=== PATIENT | male | born 1955 | race Caucasian/White ===

== ENCOUNTER 2023-07-07 11:14 | Inpatient (IN) | payer MEDICARE, OTHER ==
[~2023-07-07] VITALS: Ht 170.2 cm; Wt 52.6 kg
[2023-07-07] VITALS (41 sets, daily range): BP systolic 100–157; BP diastolic 68–96; PULSE 74–96; RESP 16–26; TEMP 97–98.1
[2023-07-07] MEDS: IPRATROPIUM/ALBUTEROL 0.5-3(2.5)MG/3ML NEB NEB SCH ×2 (08:44→19:53)
[2023-07-07] MEDS ORDERED: DOBUTAMINE 250MG PREMIX 250 ML IV STA (11:31)
[2023-07-07] MEDS ORDERED: DOBUTAMINE 250MG PREMIX 250 ML IV NR (11:34)
[2023-07-07] MEDS ORDERED: FENTANYL 2500MCG/250ML PMX 250 ML IV STA (11:41)
[2023-07-07] MEDS ORDERED: EPINEPHRINE 5 MG in SODIUM CHLORIDE 0.9% 245 ML IV STA (11:42)
[2023-07-07] MEDS ORDERED: TAMSULOSIN (11:44)
[2023-07-07] MEDS ORDERED: FUROSEMIDE (11:44)
[2023-07-07] MEDS ORDERED: [UNRECOGNIZED DRUG - OTHER] (11:44)
[2023-07-07] MEDS ORDERED: MYCOPHENOLATE (11:44)
[2023-07-07] MEDS ORDERED: MONTELUKAST (11:44)
[2023-07-07] MEDS ORDERED: PRAVASTATIN (11:44)
[2023-07-07] MEDS ORDERED: METOPROLOL (11:44)
[2023-07-07] MEDS ORDERED: PANTOPRAZOLE (11:44)
[2023-07-07] MEDS ORDERED: ASPIRIN (11:44)
[2023-07-07] MEDS ORDERED: [UNRECOGNIZED DRUG - OTHER] (11:44)
[2023-07-07] MEDS ORDERED: FOLIC ACID (11:44)
[2023-07-07] MEDS ORDERED: MIRTAZAPINE (11:44)
[2023-07-07] MEDS ORDERED: FLUTICASONE (11:44)
[2023-07-07] MEDS ORDERED: AZITHROMYCIN (11:44)
[2023-07-07] MEDS ORDERED: PROCTOSOL (11:44)
[2023-07-07] MEDS ORDERED: POLYETHYLENE GLYCOL (11:44)
[2023-07-07] MEDS ORDERED: PREDNISONE (11:44)
[2023-07-07] MEDS ORDERED: FENTANYL CITRATE/PF 50MCG/ML 2ML VIAL IV ONE (11:45)
[2023-07-07] MEDS ORDERED: SODIUM CHLORIDE 0.9% 1,000 ML IV ONE (11:45)
[2023-07-07] MEDS ORDERED: SODIUM CHLORIDE 0.9% 1000ML BAG (SEPSIS BOLUS) IV ONE (11:45)
[2023-07-07 11:56] LABS: HEMOGLOBIN. 10.8 g/dL (14.0-18.0); MEAN CORPUSCULAR HEMOGLOBIN 33.7 pg (28.0-32.0); MEAN CORPUSCULAR HGB CONC 31.7 g/dL (31.0-37.0); MEAN CORPUSCULAR VOLUME 106.6 fL (80.0-94.0); MEAN PLATELET VOLUME 9.6 fl (7.4-10.4); PLATELET 123 x1000/uL (130-400); RED BLOOD CELL COUNT 3.19 mill/uL (4.7-6.1); RED CELL DISTRIBUTION WIDTH 14.6 % (11.6-14.6); WHITE BLOOD COUNT 4.6 x1000/uL (4.5-11.0)
[2023-07-07 11:58] LABS: DIFFERENTIAL COMMENT 1
[2023-07-07] MEDS ORDERED: NOREPINEPHRINE 8MG/250ML PMX 250 ML IV STA (12:02)
[2023-07-07 12:05] LABS: BG BASE EXCESS -0.6 mmol/L (-2.0-2.0); BG CARBOXYHEMOGLOBIN 0.2 % (0.5-1.5); BG DEOXYHEMOGLOBIN 0.4 % (0.0-5.0); BG HCO3 ACT 29.5 mmol/L (22.0-26.0); BG METHEMOGLOBIN 0.3 % (0.0-1.5); BG OXYGEN SATURATION 99.6 % (92.0-98.5); BG OXYHEMOGLOBIN 99.1 % (94.0-97.0); BG PCO2 81.1 mmHg (35.0-45.0); BG PH 7.179 (7.350-7.450); BG PO2 433.6 mmHg (75.0-100.0); BG SAMPLE SITE RIGHT BRACHIAL; BG TOTAL HEMOGLOBIN 11.9 g/dL (12.0-18.0); BG VENT MODE VENT - AC
[2023-07-07 12:11] LABS: INR 1.3; PROTHROMBIN TIME 13.4 sec (9.6-11.0)
[2023-07-07] MEDS ORDERED: EPINEPHRINE 5 MG in SODIUM CHLORIDE 0.9% 250 ML IV PRN (12:30)
[2023-07-07] MEDS ORDERED: FENTANYL CITRATE 2,500 MCG in SODIUM CHLORIDE 0.9% 200 ML IV PRN ×2 (12:30→16:00)
[2023-07-07] MEDS ORDERED: MIDAZOLAM 100MG/100ML PMX 100 ML IV PRN (14:15)
[2023-07-07 15:08] LABS: HYPOCHROMASIA 1+; PLATELET ESTIMATE SLIGHTLY DECREASED
[2023-07-07] MEDS ORDERED: ACETAMINOPHEN 325MG TABLET PO PRN (15:30)
[2023-07-07] MEDS ORDERED: IPRATROPIUM/ALBUTEROL 0.5-3(2.5)MG/3ML NEB NEB PRN (15:30)
[2023-07-07] MEDS ORDERED: ONDANSETRON HCL 4MG/2ML INJ IV PRN (15:30)
[2023-07-07] MEDS ORDERED: ENOXAPARIN 40MG/0.4ML SYR SUBCUT SCH (15:30)
[2023-07-07] MEDS ORDERED: MAGNESIUM/ALUMINUM HYDROXIDE/SIMETHICONE 30ML UDC PO PRN (15:30)
[2023-07-07] MEDS ORDERED: CLONIDINE 0.1MG TABLET PO PRN (15:30)
[2023-07-07] MEDS ORDERED: GUAIFENESIN 200MG/10ML SUGAR FREE UDC PO PRN (15:30)
[2023-07-07 15:51] LABS: TROPONIN I HIGH SENSITIVITY 416 ng/L (3.0-53)
[2023-07-07 15:51] LABS: BG BASE EXCESS 4.2 mmol/L (-2.0-2.0); BG CARBOXYHEMOGLOBIN 0.3 % (0.5-1.5); BG DEOXYHEMOGLOBIN 9.6 % (0.0-5.0); BG HCO3 ACT 29.3 mmol/L (22.0-26.0); BG METHEMOGLOBIN 0.1 % (0.0-1.5); BG OXYGEN SATURATION 90.4 % (92.0-98.5); BG PCO2 45.5 mmHg (35.0-45.0); BG PH 7.426 (7.350-7.450); BG PO2 57.6 mmHg (75.0-100.0); BG SAMPLE SITE RIGHT BRACHIAL; BG TOTAL HEMOGLOBIN 12.4 g/dL (12.0-18.0); BG VENT MODE VENT - AC
[2023-07-07] MEDS ORDERED: FENTANYL 2500MCG/250ML PMX 250 ML IV ONE (16:00)
[2023-07-07] MEDS ORDERED: NOREPINEPHRINE 32 MG in DEXT 5% WATER 218 ML IV PRN (16:00)
[2023-07-07] MEDS ORDERED: FINA5TAB11 PO (16:20)
[2023-07-07] MEDS ORDERED: ALEN70TA79 PO (16:20)
[2023-07-07] MEDS ORDERED: FURO20TA4 PO (16:20)
[2023-07-07] MEDS ORDERED: SULF-292 PO (16:20)
[2023-07-07] MEDS ORDERED: PRAV20TA57 PO (16:20)
[2023-07-07] MEDS ORDERED: TACR1CAP PO (16:20)
[2023-07-07] MEDS ORDERED: AZIT250T12 PO (16:20)
[2023-07-07] MEDS ORDERED: DILT360C37 PO (16:20)
[2023-07-07] MEDS ORDERED: TAMS-11 PO (16:20)
[2023-07-07] MEDS ORDERED: METO25TA6 PO (16:20)
[2023-07-07] MEDS ORDERED: DILT300C53 PO (16:20)
[2023-07-07] MEDS ORDERED: TACR0.5C4 PO (16:20)
[2023-07-07] MEDS ORDERED: MIRT7.5T11 PO (16:20)
[2023-07-07] MEDS ORDERED: VALG450T15 PO (16:20)
[2023-07-07] MEDS ORDERED: FOLI-43 PO (16:20)
[2023-07-07] MEDS ORDERED: MONT-39 PO (16:20)
[2023-07-07] MEDS ORDERED: MYCO250C PO (16:20)
[2023-07-07] MEDS ORDERED: POLY510P31 PO (16:20)
[2023-07-07] MEDS ORDERED: PANT40TA51 PO (16:20)
[2023-07-07] MEDS: ENOXAPARIN 60MG/0.6ML SYR SUBCUT NR ×2 (16:49→16:57)
[2023-07-07 17:55] LABS: LACTIC ACID 6.1 mmol/L (0.4-2.0)
[2023-07-07 18:52] LABS: TROPONIN I HIGH SENSITIVITY 327 ng/L (3.0-53)
[2023-07-07 20:29] LABS: BG BASE EXCESS 7.3 mmol/L (-2.0-2.0); BG CARBOXYHEMOGLOBIN 0.3 % (0.5-1.5); BG DEOXYHEMOGLOBIN 1.2 % (0.0-5.0); BG FRACTION INSPIRED OXYGEN 80; BG HCO3 ACT 31.6 mmol/L (22.0-26.0); BG OXYGEN SATURATION 98.8 % (92.0-98.5); BG OXYHEMOGLOBIN 98.5 % (94.0-97.0); BG PCO2 43.4 mmHg (35.0-45.0); BG PO2 206.7 mmHg (75.0-100.0); BG SAMPLE SITE RIGHT BRACHIAL; BG TOTAL HEMOGLOBIN 12.4 g/dL (12.0-18.0); BG TOTAL RESPIRATORY RATE 24 b/min; BG VENT MODE VENT - AC
[2023-07-07] MEDS ORDERED: PANTOPRAZOLE SODIUM 40 MG/VIAL IV SCH (21:30)
[2023-07-07] MEDS ORDERED: PIPERACILLIN/TAZOBACTAM 3.375 G in DEXTROSE 5% WATER 50 ML IV SCH (22:00)
[2023-07-07 22:19] LABS: CHLORIDE 114 mEq/L (98-107); POTASSIUM 4.6 mEq/L (3.5-5.1); SODIUM 149 mEq/L (136-145)
[2023-07-07 22:20] LABS: CARBON DIOXIDE 17 mEq/L (21-32); GLUCOSE 59 mg/dL (70-105)
[2023-07-07 22:21] LABS: CALCIUM 9.1 mg/dL (8.7-10.4)
[2023-07-07 22:22] LABS: ALANINE AMINOTRANSFERASE 9 IU/L (10-49); ALBUMIN 3.5 g/dL (3.2-4.8); ASPARTATE AMINOTRANSFERASE 30 IU/L (<34); BILIRUBIN TOTAL 0.6 mg/dL (0.1-1.0)
[2023-07-07 22:23] LABS: CREATINE KINASE 60 IU/L (46-171); TROPONIN I HIGH SENSITIVITY 37 ng/L (3.0-53)
[2023-07-07 22:27] LABS: PROTEIN TOTAL 6.5 g/dL (6.0-8.3); UREA NITROGEN BLOOD 12 mg/dL (9-23)
[2023-07-07] MEDS ORDERED: LEVOFLOXACIN 500MG PREMIX 100 ML IV NR (22:30)
[2023-07-07 23:07] LABS: CALCIUM 10.7 mg/dL (8.7-10.4)
[2023-07-07 23:10] LABS: CREATININE 1.6 mg/dL (0.6-1.3)
[2023-07-08] VITALS (94 sets, daily range): BP systolic 116–161; BP diastolic 65–101; PULSE 78–102; RESP 14–42; TEMP 97.9–99.5
[2023-07-08 04:46] LABS: MEAN CORPUSCULAR HGB CONC 33.3 g/dL (31.0-37.0); MEAN CORPUSCULAR VOLUME 102.1 fL (80.0-94.0); MEAN PLATELET VOLUME 9.4 fl (7.4-10.4); PLATELET 104 x1000/uL (130-400); RED BLOOD CELL COUNT 3.23 mill/uL (4.7-6.1); RED CELL DISTRIBUTION WIDTH 13.9 % (11.6-14.6); WHITE BLOOD COUNT 4.9 x1000/uL (4.5-11.0)
[2023-07-08 05:10] LABS: CALCIUM 10.4 mg/dL (8.7-10.4); CARBON DIOXIDE 33 mEq/L (21-32); CHLORIDE 110 mEq/L (98-107); CREATININE 1.7 mg/dL (0.6-1.3); GLUCOSE 165 mg/dL (70-105); PHOSPHORUS 2.2 mg/dL (2.5-4.9); POTASSIUM 4.6 mEq/L (3.5-5.1); SODIUM 150 mEq/L (136-145); UREA NITROGEN BLOOD 45 mg/dL (9-23)
[2023-07-08 06:00] LABS: DIFFERENTIAL COMMENT 1
[2023-07-08] MEDS ORDERED: IOHEXOL-350 100 ML BOTTLE ONE (06:36)
[2023-07-08] MEDS: ENOXAPARIN 60MG/0.6ML SYR SUBCUT SCH (06:58)
[2023-07-08 08:38] LABS: BG BASE EXCESS 6.5 mmol/L (-2.0-2.0); BG CARBOXYHEMOGLOBIN 0.1 % (0.5-1.5); BG DEOXYHEMOGLOBIN 2.7 % (0.0-5.0); BG FRACTION INSPIRED OXYGEN 40; BG METHEMOGLOBIN 0.1 % (0.0-1.5); BG OXYGEN SATURATION 97.3 % (92.0-98.5); BG OXYHEMOGLOBIN 97.1 % (94.0-97.0); BG PCO2 34.4 mmHg (35.0-45.0); BG PH 7.544 (7.350-7.450); BG SAMPLE SITE LEFT RADIAL; BG TOTAL HEMOGLOBIN 12.7 g/dL (12.0-18.0); BG VENT MODE VENT - AC
[2023-07-08] MEDS: PANTOPRAZOLE SODIUM 40 MG/VIAL IV SCH (08:54)
[2023-07-08 09:00] LABS: NUCLEATED RED BLOOD CELLS 1 /100 WBC; PLATELET ESTIMATE SLIGHTLY DECREASED
[2023-07-08] MEDS ORDERED: VANCOMYCIN 1G PREMIX 200 ML IV NR (09:15)
[2023-07-08] MEDS: METRONIDAZOLE 500 MG PREMIX 100 ML IV SCH ×2 (09:43→16:20)
[2023-07-08] MEDS: TAMSULOSIN HCL 0.4MG SR CAPSULE PO SCH (10:55)
[2023-07-08] MEDS: DEXT 5%/0.45% NACL 1000ML 1,000 ML IV SCH ×2 (10:55→23:27)
[2023-07-08] MEDS: ASPIRIN 81MG TABLET PO SCH (10:55)
[2023-07-08] MEDS ORDERED: TACROLIMUS 0.5 MG CAPSULE PO SCH (11:30)
[2023-07-08 11:43] LABS: BG BASE EXCESS 7.2 mmol/L (-2.0-2.0); BG CARBOXYHEMOGLOBIN 0.3 % (0.5-1.5); BG DEOXYHEMOGLOBIN 3.1 % (0.0-5.0); BG FRACTION INSPIRED OXYGEN 40; BG HCO3 ACT 31.8 mmol/L (22.0-26.0); BG METHEMOGLOBIN 0.3 % (0.0-1.5); BG OXYGEN SATURATION 96.9 % (92.0-98.5); BG OXYHEMOGLOBIN 96.3 % (94.0-97.0); BG PCO2 45.1 mmHg (35.0-45.0); BG PH 7.466 (7.350-7.450); BG PO2 93.2 mmHg (75.0-100.0); BG SAMPLE SITE RIGHT RADIAL; BG TOTAL HEMOGLOBIN 11.7 g/dL (12.0-18.0); BG VENT MODE VENT - AC
[2023-07-08] MEDS: IPRATROPIUM/ALBUTEROL 0.5-3(2.5)MG/3ML NEB NEB SCH ×2 (14:05→20:01)
[2023-07-08] MEDS ORDERED: TACROLIMUS 1MG/PACKET PO SCH (17:00)
[2023-07-08] MEDS ORDERED: TACROLIMUS 0.5 MG CAPSULE NG SCH (17:00)
[2023-07-08 17:24] LABS: CLARITY URINE CLEAR (CLEAR); COLOR URINE YELLOW (YELLOW); SPECIFIC GRAVITY URINE 1.005 (1.005-1.030)
[2023-07-08 17:25] LABS: GLUCOSE URINE 2+ (NEGATIVE); KETONES URINE NEGATIVE (NEGATIVE); NITRITE URINE NEGATIVE (NEGATIVE); OCCULT BLOOD URINE NEGATIVE (NEGATIVE); PH URINE 5.5 (4.5-8.0); PROTEIN URINE NEGATIVE (NEGATIVE)
[2023-07-08 17:26] LABS: LEUKOCYTE ESTERASE URINE NEGATIVE (NEGATIVE); UROBILINOGEN URINE 0.2 E.U./dL (0.2-1.0)
[2023-07-08 17:40] LABS: HYALINE CASTS URINE 0-5 /lpf; RBC URINE 0-2 /hpf (0-2); SQUAMOUS EPITHELIAL CELL URINE FEW /lpf (RARE/1+)
[2023-07-08 17:42] LABS: BACTERIA URINE TRACE
[2023-07-08 17:43] LABS: WBC URINE 0-2 /hpf (0-2)
[2023-07-08] MEDS: TACROLIMUS 1MG/PACKET NG SCH (18:46)
[2023-07-08] MEDS: PREDNISONE 5MG TABLET PO SCH (18:46)
[2023-07-08] MEDS: ACYCLOVIR 400 MG TABLET PO SCH (20:27)
[2023-07-08] MEDS ORDERED: MYCOPHENOLATE MOFETIL 250MG CAPSULE PO SCH (21:00)
[2023-07-08] MEDS: LEVOFLOXACIN 250MG PREMIX 100 ML IV SCH (21:43)
[2023-07-09] VITALS (75 sets, daily range): BP systolic 104–155; BP diastolic 63–85; PULSE 96–113; RESP 14–33; TEMP 98.2–100.1
[2023-07-09] MEDS: METRONIDAZOLE 500 MG PREMIX 100 ML IV SCH ×3 (01:34→17:21)
[2023-07-09] MEDS: IPRATROPIUM/ALBUTEROL 0.5-3(2.5)MG/3ML NEB NEB SCH ×4 (02:57→20:15)
[2023-07-09 06:04] LABS: CALCIUM 9.3 mg/dL (8.7-10.4); CREATININE 1.8 mg/dL (0.6-1.3); POTASSIUM 4.2 mEq/L (3.5-5.1)
[2023-07-09] MEDS: ENOXAPARIN 60MG/0.6ML SYR SUBCUT SCH (06:45)
[2023-07-09] MEDS: TACROLIMUS 1MG/PACKET NG SCH ×2 (08:34→17:23)
[2023-07-09] MEDS: PREDNISONE 5MG TABLET PO SCH (08:34)
[2023-07-09] MEDS: ASPIRIN 81MG TABLET PO SCH (08:34)
[2023-07-09] MEDS: PANTOPRAZOLE SODIUM 40 MG/VIAL IV SCH (08:34)
[2023-07-09] MEDS: TAMSULOSIN HCL 0.4MG SR CAPSULE PO SCH (08:35)
[2023-07-09] MEDS: ACYCLOVIR 400 MG TABLET PO SCH (08:35)
[2023-07-09 08:49] LABS: BG BASE EXCESS 3.5 mmol/L (-2.0-2.0); BG CARBOXYHEMOGLOBIN 0.3 % (0.5-1.5); BG DEOXYHEMOGLOBIN 1.6 % (0.0-5.0); BG FRACTION INSPIRED OXYGEN 50; BG HCO3 ACT 30.2 mmol/L (22.0-26.0); BG METHEMOGLOBIN 0.3 % (0.0-1.5); BG OXYGEN SATURATION 98.4 % (92.0-98.5); BG OXYHEMOGLOBIN 97.8 % (94.0-97.0); BG PCO2 55.4 mmHg (35.0-45.0); BG PH 7.354 (7.350-7.450); BG PO2 147.2 mmHg (75.0-100.0); BG SAMPLE SITE RIGHT RADIAL; BG TOTAL HEMOGLOBIN 11.9 g/dL (12.0-18.0); BG TOTAL RESPIRATORY RATE 29 b/min; BG VENT MODE VENT - SIMV
[2023-07-09] MEDS ORDERED: VANCOMYCIN 750MG PREMIX 150 ML IV SCH (09:00)
[2023-07-09] MEDS ORDERED: TACROLIMUS 1MG/PACKET PO SCH (09:00)
[2023-07-09] MEDS: DEXT 5%/0.45% NACL 1000ML 1,000 ML IV SCH (13:52)
[2023-07-09 14:54] LABS: BG BASE EXCESS 4.7 mmol/L (-2.0-2.0); BG CARBOXYHEMOGLOBIN 0.2 % (0.5-1.5); BG DEOXYHEMOGLOBIN 2.5 % (0.0-5.0); BG FRACTION INSPIRED OXYGEN 40; BG HCO3 ACT 30.8 mmol/L (22.0-26.0); BG METHEMOGLOBIN 0.2 % (0.0-1.5); BG OXYGEN SATURATION 97.5 % (92.0-98.5); BG OXYHEMOGLOBIN 97.1 % (94.0-97.0); BG PCO2 53.7 mmHg (35.0-45.0); BG PH 7.377 (7.350-7.450); BG PO2 111.2 mmHg (75.0-100.0); BG SAMPLE SITE RIGHT RADIAL; BG TOTAL HEMOGLOBIN 10.1 g/dL (12.0-18.0); BG VENT MODE VENT - CPAP
[2023-07-09] MEDS: SULFAMETHOXAZOLE/TRIMETHOPRIM 200-40 MG/5ML 5ML ORAL SYR GT SCH (17:22)
[2023-07-09] MEDS ORDERED: VANCOMYCIN 500MG PREMIX 100 ML IV SCH (21:00)
[2023-07-09] MEDS: LEVOFLOXACIN 250MG PREMIX 100 ML IV SCH (21:29)
[2023-07-09] MEDS: ACETAMINOPHEN 325MG TABLET PO PRN (22:24)
[2023-07-09] MEDS: ACYCLOVIR 200 MG/5 ML ORAL SYR GT SCH (22:55)
[2023-07-10] VITALS (49 sets, daily range): BP systolic 99–148; BP diastolic 65–107; PULSE 99–111; RESP 13–32; TEMP 98.3–100.3
[2023-07-10] MEDS: METRONIDAZOLE 500 MG PREMIX 100 ML IV SCH ×3 (00:25→17:01)
[2023-07-10] MEDS: DEXT 5%/0.45% NACL 1000ML 1,000 ML IV SCH (02:08)
[2023-07-10] MEDS: MIDAZOLAM HCL 100 MG in SODIUM CHLORIDE 0.9% 80 ML IV PRN (03:31)
[2023-07-10] MEDS: IPRATROPIUM/ALBUTEROL 0.5-3(2.5)MG/3ML NEB NEB SCH ×4 (04:57→21:26)
[2023-07-10 05:35] LABS: DIFFERENTIAL COMMENT 0; HEMATOCRIT. 24.1 % (42.0-52.0); HEMOGLOBIN. 8.1 g/dL (14.0-18.0); LYMPHOCYTES % 8.1 % (20.0-50.0); MEAN CORPUSCULAR HEMOGLOBIN 34.4 pg (28.0-32.0); MEAN CORPUSCULAR HGB CONC 33.4 g/dL (31.0-37.0); MEAN PLATELET VOLUME 9.9 fl (7.4-10.4); MONOCYTES % 9.7 % (2.0-8.0); NEUTROPHILS % 82.2 % (40.0-76.0); PLATELET 52 x1000/uL (130-400); RED BLOOD CELL COUNT 2.34 mill/uL (4.7-6.1); RED CELL DISTRIBUTION WIDTH 14.2 % (11.6-14.6); WHITE BLOOD COUNT 2.9 x1000/uL (4.5-11.0)
[2023-07-10 05:56] LABS: CALCIUM 8.4 mg/dL (8.7-10.4); CREATININE 1.4 mg/dL (0.6-1.3); POTASSIUM 3.7 mEq/L (3.5-5.1)
[2023-07-10] MEDS: ENOXAPARIN 60MG/0.6ML SYR SUBCUT SCH (05:57)
[2023-07-10] MEDS: TAMSULOSIN HCL 0.4MG SR CAPSULE PO SCH (09:00)
[2023-07-10] MEDS: PREDNISONE 5MG TABLET PO SCH (09:00)
[2023-07-10] MEDS: PANTOPRAZOLE SODIUM 40 MG/VIAL IV SCH (09:00)
[2023-07-10] MEDS: ACYCLOVIR 200 MG/5 ML ORAL SYR GT SCH ×2 (09:00→21:51)
[2023-07-10] MEDS: ASPIRIN 81MG TABLET PO SCH (09:00)
[2023-07-10] MEDS ORDERED: VANCOMYCIN 500MG PREMIX 100 ML IV SCH (10:00)
[2023-07-10 10:44] LABS: BG BASE EXCESS 3.1 mmol/L (-2.0-2.0); BG CARBOXYHEMOGLOBIN 0.3 % (0.5-1.5); BG DEOXYHEMOGLOBIN 2.3 % (0.0-5.0); BG FRACTION INSPIRED OXYGEN 40; BG METHEMOGLOBIN 0.5 % (0.0-1.5); BG OXYGEN SATURATION 97.7 % (92.0-98.5); BG OXYHEMOGLOBIN 96.9 % (94.0-97.0); BG PCO2 44.1 mmHg (35.0-45.0); BG PO2 106.1 mmHg (75.0-100.0); BG SAMPLE SITE RIGHT RADIAL; BG TOTAL HEMOGLOBIN 9.3 g/dL (12.0-18.0); BG TOTAL RESPIRATORY RATE 27 b/min; BG VENT MODE VENT - SIMV
[2023-07-10] MEDS: MICAFUNGIN 100 MG in SODIUM CHLORIDE 0.9% 100 ML IV SCH (16:00)
[2023-07-10] MEDS: SULFAMETHOXAZOLE/TRIMETHOPRIM 200-40 MG/5ML 5ML ORAL SYR GT SCH (18:00)
[2023-07-10] MEDS ORDERED: VANCOMYCIN 750MG PREMIX 150 ML IV SCH (21:00)
[2023-07-10] MEDS: LEVOFLOXACIN 250MG PREMIX 100 ML IV SCH (21:51)
[2023-07-11] VITALS (103 sets, daily range): BP systolic 103–164; BP diastolic 60–85; PULSE 92–111; RESP 15–47; TEMP 98.2–98.9; O2SAT 99
[2023-07-11] MEDS: METRONIDAZOLE 500 MG PREMIX 100 ML IV SCH ×3 (00:11→16:56)
[2023-07-11] MEDS: IPRATROPIUM/ALBUTEROL 0.5-3(2.5)MG/3ML NEB NEB SCH ×4 (00:41→20:31)
[2023-07-11] MEDS: MIDAZOLAM HCL 100 MG in SODIUM CHLORIDE 0.9% 80 ML IV PRN (04:28)
[2023-07-11] MEDS: ENOXAPARIN 60MG/0.6ML SYR SUBCUT SCH (05:17)
[2023-07-11 05:33] LABS: HEMATOCRIT. 22.9 % (42.0-52.0); HEMOGLOBIN. 7.8 g/dL (14.0-18.0); LYMPHOCYTES % 8.3 % (20.0-50.0); MEAN CORPUSCULAR HEMOGLOBIN 35.3 pg (28.0-32.0); MEAN CORPUSCULAR HGB CONC 33.9 g/dL (31.0-37.0); MEAN PLATELET VOLUME 10.6 fl (7.4-10.4); MONOCYTES % 9.8 % (2.0-8.0); NEUTROPHILS % 81.9 % (40.0-76.0); RED CELL DISTRIBUTION WIDTH 13.9 % (11.6-14.6); WHITE BLOOD COUNT 2.5 x1000/uL (4.5-11.0)
[2023-07-11 05:35] LABS: CALCIUM 8.1 mg/dL (8.7-10.4); CARBON DIOXIDE 30 mEq/L (21-32); CHLORIDE 109 mEq/L (98-107); CREATININE 1.1 mg/dL (0.6-1.3); GLUCOSE 155 mg/dL (70-105); PHOSPHORUS 2.1 mg/dL (2.5-4.9); POTASSIUM 4.2 mEq/L (3.5-5.1); SODIUM 143 mEq/L (136-145); UREA NITROGEN BLOOD 26 mg/dL (9-23)
[2023-07-11 06:45] LABS: DIFFERENTIAL COMMENT 1
[2023-07-11] MEDS: TAMSULOSIN HCL 0.4MG SR CAPSULE PO SCH (08:20)
[2023-07-11] MEDS: ASPIRIN 81MG TABLET PO SCH (08:20)
[2023-07-11] MEDS: PREDNISONE 5MG TABLET PO SCH (08:20)
[2023-07-11] MEDS: PANTOPRAZOLE SODIUM 40 MG/VIAL IV SCH (08:20)
[2023-07-11] MEDS: ACYCLOVIR 200 MG/5 ML ORAL SYR GT SCH ×2 (08:22→22:00)
[2023-07-11] MEDS ORDERED: LIDOCAINE HCL 1% 10 MG/ML 10ML VIAL ONE (09:50)
[2023-07-11 10:25] LABS: BG BASE EXCESS 4.3 mmol/L (-2.0-2.0); BG CARBOXYHEMOGLOBIN 0.2 % (0.5-1.5); BG DEOXYHEMOGLOBIN 2.3 % (0.0-5.0); BG FRACTION INSPIRED OXYGEN 40; BG HCO3 ACT 28.7 mmol/L (22.0-26.0); BG METHEMOGLOBIN 0.3 % (0.0-1.5); BG OXYGEN SATURATION 97.7 % (92.0-98.5); BG OXYHEMOGLOBIN 97.2 % (94.0-97.0); BG PCO2 42.3 mmHg (35.0-45.0); BG PEEP (cmH2O) 0 cmH2O; BG PH 7.449 (7.350-7.450); BG PO2 112.8 mmHg (75.0-100.0); BG SAMPLE SITE RIGHT RADIAL; BG TOTAL HEMOGLOBIN 8.6 g/dL (12.0-18.0); BG VENT MODE VENT - AC
[2023-07-11] MEDS ORDERED: NALOXONE HCL 0.4MG/ML VIAL IV PRN (13:45)
[2023-07-11] MEDS ORDERED: MORPHINE SULFATE 2 MG/ML CPJ (NOT FOR IM USE) IV PRN (13:45)
[2023-07-11] MEDS: MICAFUNGIN 100 MG in SODIUM CHLORIDE 0.9% 100 ML IV SCH (16:56)
[2023-07-11] MEDS: TACROLIMUS 1MG/PACKET NG SCH ×2 (17:01→17:02)
[2023-07-11] MEDS: SULFAMETHOXAZOLE/TRIMETHOPRIM 200-40 MG/5ML 5ML ORAL SYR GT SCH (18:02)
[2023-07-11] MEDS: VANCOMYCIN 750MG PREMIX 150 ML IV SCH (18:02)
[2023-07-11 18:26] LABS: BG BASE EXCESS 1.5 mmol/L (-2.0-2.0); BG CARBOXYHEMOGLOBIN 0.3 % (0.5-1.5); BG DEOXYHEMOGLOBIN 3.4 % (0.0-5.0); BG FRACTION INSPIRED OXYGEN 40; BG METHEMOGLOBIN 0.2 % (0.0-1.5); BG OXYGEN SATURATION 96.6 % (92.0-98.5); BG OXYHEMOGLOBIN 96.1 % (94.0-97.0); BG PCO2 46.5 mmHg (35.0-45.0); BG PH 7.381 (7.350-7.450); BG PO2 94.3 mmHg (75.0-100.0); BG SAMPLE SITE RIGHT BRACHIAL; BG TOTAL HEMOGLOBIN 10.2 g/dL (12.0-18.0); BG VENT MODE VENT - SIMV
[2023-07-11] MEDS: LEVOFLOXACIN 250MG PREMIX 100 ML IV SCH (22:00)
[2023-07-11] MEDS: POTASSIUM-SODIUM PHOSPHATE POWDER PACKET PO SCH (23:47)
[2023-07-12] VITALS (83 sets, daily range): BP systolic 97–231; BP diastolic 51–119; PULSE 92–110; RESP 16–37; TEMP 98.5–100.1
[2023-07-12] MEDS: METRONIDAZOLE 500 MG PREMIX 100 ML IV SCH ×3 (01:00→16:52)
[2023-07-12] MEDS: LORAZEPAM 2MG/ML CPJ IV PRN ×2 (02:57→18:55)
[2023-07-12] MEDS: IPRATROPIUM/ALBUTEROL 0.5-3(2.5)MG/3ML NEB NEB SCH ×3 (04:00→12:55)
[2023-07-12 05:00] LABS: HEMATOCRIT. 26.1 % (42.0-52.0); HEMOGLOBIN. 8.6 g/dL (14.0-18.0); MEAN CORPUSCULAR HEMOGLOBIN 34.7 pg (28.0-32.0); MEAN CORPUSCULAR HGB CONC 32.9 g/dL (31.0-37.0); MEAN CORPUSCULAR VOLUME 105.3 fL (80.0-94.0); MEAN PLATELET VOLUME 9.7 fl (7.4-10.4); RED BLOOD CELL COUNT 2.48 mill/uL (4.7-6.1); WHITE BLOOD COUNT 2.6 x1000/uL (4.5-11.0)
[2023-07-12 05:19] LABS: CALCIUM 8.4 mg/dL (8.7-10.4); CARBON DIOXIDE 31 mEq/L (21-32); CHLORIDE 109 mEq/L (98-107); CREATININE 0.9 mg/dL (0.6-1.3); GLUCOSE 146 mg/dL (70-105); PHOSPHORUS 2.4 mg/dL (2.5-4.9); POTASSIUM 4.6 mEq/L (3.5-5.1); SODIUM 143 mEq/L (136-145); UREA NITROGEN BLOOD 27 mg/dL (9-23)
[2023-07-12] MEDS: ENOXAPARIN 60MG/0.6ML SYR SUBCUT SCH (06:00)
[2023-07-12 07:05] LABS: DIFFERENTIAL COMMENT 1; PLATELET 47 x1000/uL (130-400)
[2023-07-12] MEDS: POTASSIUM-SODIUM PHOSPHATE POWDER PACKET PO SCH ×2 (09:11→16:51)
[2023-07-12] MEDS: TACROLIMUS 1MG/PACKET NG SCH ×2 (09:11→16:51)
[2023-07-12] MEDS: ACYCLOVIR 200 MG/5 ML ORAL SYR GT SCH ×2 (09:11→20:55)
[2023-07-12] MEDS: PANTOPRAZOLE SODIUM 40 MG/VIAL IV SCH (09:11)
[2023-07-12] MEDS: ASPIRIN 81MG TABLET PO SCH (09:11)
[2023-07-12] MEDS: PREDNISONE 5MG TABLET PO SCH (09:11)
[2023-07-12] MEDS: TAMSULOSIN HCL 0.4MG SR CAPSULE PO SCH (09:12)
[2023-07-12 09:23] LABS: BG BASE EXCESS 0.7 mmol/L (-2.0-2.0); BG CARBOXYHEMOGLOBIN 0.3 % (0.5-1.5); BG DEOXYHEMOGLOBIN 1.8 % (0.0-5.0); BG FRACTION INSPIRED OXYGEN 40; BG HCO3 ACT 27.7 mmol/L (22.0-26.0); BG OXYGEN SATURATION 98.2 % (92.0-98.5); BG OXYHEMOGLOBIN 97.9 % (94.0-97.0); BG PCO2 56.9 mmHg (35.0-45.0); BG PH 7.305 (7.350-7.450); BG PO2 142.6 mmHg (75.0-100.0); BG SAMPLE SITE RIGHT BRACHIAL; BG TOTAL HEMOGLOBIN 9.6 g/dL (12.0-18.0); BG VENT MODE VENT - SIMV
[2023-07-12 11:55] LABS: PLATELET ESTIMATE MARKEDLY DECREASED
[2023-07-12] MEDS: VANCOMYCIN 750MG PREMIX 150 ML IV SCH (12:15)
[2023-07-12] MEDS: MICAFUNGIN 100 MG in SODIUM CHLORIDE 0.9% 100 ML IV SCH (14:00)
[2023-07-12] MEDS ORDERED: ACETAMINOPHEN 650MG/20.3ML UDC PO PRN (16:45)
[2023-07-12] MEDS: LEVOFLOXACIN 750MG PREMIX 150 ML IV SCH (20:55)
[2023-07-12] MEDS: SULFAMETHOXAZOLE/TRIMETHOPRIM 200-40 MG/5ML 5ML ORAL SYR GT SCH (22:43)
[2023-07-13] VITALS (54 sets, daily range): BP systolic 103–141; BP diastolic 54–78; PULSE 81–99; RESP 19–33; TEMP 98.4–99.2
[2023-07-13] MEDS: METRONIDAZOLE 500 MG PREMIX 100 ML IV SCH ×3 (00:42→17:02)
[2023-07-13 05:30] LABS: HEMATOCRIT. 23.5 % (42.0-52.0); HEMOGLOBIN. 7.7 g/dL (14.0-18.0); MEAN CORPUSCULAR HEMOGLOBIN 34.8 pg (28.0-32.0); MEAN CORPUSCULAR HGB CONC 32.7 g/dL (31.0-37.0); MEAN CORPUSCULAR VOLUME 106.6 fL (80.0-94.0); MEAN PLATELET VOLUME 10.4 fl (7.4-10.4); RED BLOOD CELL COUNT 2.21 mill/uL (4.7-6.1); RED CELL DISTRIBUTION WIDTH 14.3 % (11.6-14.6)
[2023-07-13 05:47] LABS: ALANINE AMINOTRANSFERASE 60 IU/L (10-49); ALBUMIN 2.5 g/dL (3.2-4.8); ASPARTATE AMINOTRANSFERASE 22 IU/L (<34); BILIRUBIN TOTAL 0.4 mg/dL (0.1-1.0); CARBON DIOXIDE 30 mEq/L (21-32); CHLORIDE 108 mEq/L (98-107); CREATININE 0.8 mg/dL (0.6-1.3); GLUCOSE 108 mg/dL (70-105); PHOSPHORUS 2.1 mg/dL (2.5-4.9); POTASSIUM 4.2 mEq/L (3.5-5.1); SODIUM 141 mEq/L (136-145); UREA NITROGEN BLOOD 17 mg/dL (9-23)
[2023-07-13] MEDS: VANCOMYCIN 750MG PREMIX 150 ML IV SCH (05:56)
[2023-07-13 06:29] LABS: DIFFERENTIAL COMMENT 1; PLATELET 42 x1000/uL (130-400); WHITE BLOOD COUNT 1.8 x1000/uL (4.5-11.0)
[2023-07-13] MEDS: ACYCLOVIR 200 MG/5 ML ORAL SYR GT SCH ×2 (09:30→21:37)
[2023-07-13 09:31] LABS: BG BASE EXCESS 5.6 mmol/L (-2.0-2.0); BG CARBOXYHEMOGLOBIN 0.1 % (0.5-1.5); BG DEOXYHEMOGLOBIN 1.1 % (0.0-5.0); BG FRACTION INSPIRED OXYGEN 50; BG HCO3 ACT 30.3 mmol/L (22.0-26.0); BG METHEMOGLOBIN 0.3 % (0.0-1.5); BG OXYGEN SATURATION 98.9 % (92.0-98.5); BG OXYHEMOGLOBIN 98.5 % (94.0-97.0); BG PCO2 45.5 mmHg (35.0-45.0); BG PH 7.441 (7.350-7.450); BG PO2 142.2 mmHg (75.0-100.0); BG SAMPLE SITE RIGHT BRACHIAL; BG VENT MODE VENT - AC
[2023-07-13] MEDS: PANTOPRAZOLE SODIUM 40 MG/VIAL IV SCH (09:47)
[2023-07-13] MEDS: TAMSULOSIN HCL 0.4MG SR CAPSULE PO SCH (09:48)
[2023-07-13] MEDS: POTASSIUM-SODIUM PHOSPHATE POWDER PACKET PO SCH ×2 (09:49→17:02)
[2023-07-13] MEDS: ASPIRIN 81MG TABLET PO SCH (09:49)
[2023-07-13] MEDS: TACROLIMUS 1MG/PACKET NG SCH ×2 (09:49→17:02)
[2023-07-13] MEDS: PREDNISONE 5MG TABLET PO SCH (09:50)
[2023-07-13 10:17] LABS: PLATELET ESTIMATE MARKEDLY DECREASED
[2023-07-13 11:12] LABS: PLATELET 47 x1000/uL (130-400)
[2023-07-13] MEDS: MICAFUNGIN 100 MG in SODIUM CHLORIDE 0.9% 100 ML IV SCH (14:44)
[2023-07-13] MEDS: SULFAMETHOXAZOLE/TRIMETHOPRIM 200-40 MG/5ML 5ML ORAL SYR GT SCH (18:41)
[2023-07-14] VITALS (65 sets, daily range): BP systolic 102–150; BP diastolic 61–97; PULSE 86–112; RESP 15–34; TEMP 97.6–99.3
[2023-07-14] MEDS: METRONIDAZOLE 500 MG PREMIX 100 ML IV SCH ×3 (00:42→17:06)
[2023-07-14] MEDS: VANCOMYCIN 750MG PREMIX 150 ML IV SCH ×2 (00:42→17:06)
[2023-07-14] MEDS: ACETAMINOPHEN 325MG TABLET PO PRN (00:43)
[2023-07-14 05:50] LABS: HEMATOCRIT. 24.5 % (42.0-52.0); HEMOGLOBIN. 8.2 g/dL (14.0-18.0); MEAN CORPUSCULAR HEMOGLOBIN 34.6 pg (28.0-32.0); MEAN CORPUSCULAR HGB CONC 33.3 g/dL (31.0-37.0); MEAN CORPUSCULAR VOLUME 103.8 fL (80.0-94.0); MEAN PLATELET VOLUME 10.6 fl (7.4-10.4); PLATELET 56 x1000/uL (130-400); RED BLOOD CELL COUNT 2.36 mill/uL (4.7-6.1); RED CELL DISTRIBUTION WIDTH 13.9 % (11.6-14.6)
[2023-07-14 06:18] LABS: CARBON DIOXIDE 29 mEq/L (21-32); CHLORIDE 106 mEq/L (98-107); CREATININE 0.9 mg/dL (0.6-1.3); GLUCOSE 146 mg/dL (70-105); PHOSPHORUS 2.4 mg/dL (2.5-4.9); POTASSIUM 4.3 mEq/L (3.5-5.1); SODIUM 139 mEq/L (136-145); UREA NITROGEN BLOOD 18 mg/dL (9-23)
[2023-07-14 06:52] LABS: DIFFERENTIAL COMMENT 1
[2023-07-14 08:58] LABS: BG BASE EXCESS 3.4 mmol/L (-2.0-2.0); BG CARBOXYHEMOGLOBIN 0.3 % (0.5-1.5); BG DEOXYHEMOGLOBIN 4.2 % (0.0-5.0); BG FRACTION INSPIRED OXYGEN 30; BG METHEMOGLOBIN 0.1 % (0.0-1.5); BG OXYGEN SATURATION 95.8 % (92.0-98.5); BG OXYHEMOGLOBIN 95.4 % (94.0-97.0); BG PCO2 42.3 mmHg (35.0-45.0); BG PH 7.438 (7.350-7.450); BG SAMPLE SITE RIGHT BRACHIAL; BG TOTAL HEMOGLOBIN 9.4 g/dL (12.0-18.0); BG VENT MODE VENT - AC
[2023-07-14] MEDS: ACYCLOVIR 200 MG/5 ML ORAL SYR GT SCH ×2 (09:27→21:18)
[2023-07-14] MEDS: PREDNISONE 5MG TABLET PO SCH (09:27)
[2023-07-14] MEDS: ASPIRIN 81MG TABLET PO SCH (09:27)
[2023-07-14] MEDS: PANTOPRAZOLE SODIUM 40 MG/VIAL IV SCH (09:27)
[2023-07-14] MEDS: TACROLIMUS 1MG/PACKET NG SCH ×2 (09:28→17:06)
[2023-07-14] MEDS: POTASSIUM-SODIUM PHOSPHATE POWDER PACKET PO SCH ×2 (09:28→17:06)
[2023-07-14] MEDS: TAMSULOSIN HCL 0.4MG SR CAPSULE PO SCH (09:28)
[2023-07-14 13:49] LABS: PLATELET ESTIMATE DECREASED
[2023-07-14 13:50] LABS: ANISOCYTOSIS 1+
[2023-07-14 14:04] LABS: BG BASE EXCESS 1.3 mmol/L (-2.0-2.0); BG CARBOXYHEMOGLOBIN 0.3 % (0.5-1.5); BG DEOXYHEMOGLOBIN 3.2 % (0.0-5.0); BG FRACTION INSPIRED OXYGEN 45; BG HCO3 ACT 26.6 mmol/L (22.0-26.0); BG METHEMOGLOBIN 0.3 % (0.0-1.5); BG OXYGEN SATURATION 96.8 % (92.0-98.5); BG OXYHEMOGLOBIN 96.2 % (94.0-97.0); BG PCO2 44.8 mmHg (35.0-45.0); BG PH 7.391 (7.350-7.450); BG PO2 99.2 mmHg (75.0-100.0); BG SAMPLE SITE RIGHT BRACHIAL; BG TOTAL HEMOGLOBIN 11.5 g/dL (12.0-18.0); BG VENT MODE VENT - SIMV
[2023-07-14] MEDS: MICAFUNGIN 100 MG in SODIUM CHLORIDE 0.9% 100 ML IV SCH (15:33)
[2023-07-14] MEDS: SULFAMETHOXAZOLE/TRIMETHOPRIM 200-40 MG/5ML 5ML ORAL SYR GT SCH (17:06)
[2023-07-14] MEDS: LORAZEPAM 2MG/ML CPJ IV PRN (19:00)
[2023-07-14] MEDS: LEVOFLOXACIN 750MG PREMIX 150 ML IV SCH (21:18)
[2023-07-15] VITALS (67 sets, daily range): BP systolic 103–167; BP diastolic 61–85; PULSE 85–115; RESP 15–30; TEMP 98–99
[2023-07-15] MEDS: METRONIDAZOLE 500 MG PREMIX 100 ML IV SCH ×3 (01:43→16:55)
[2023-07-15 04:43] LABS: HEMOGLOBIN. 7.5 g/dL (14.0-18.0); MEAN CORPUSCULAR HEMOGLOBIN 34.2 pg (28.0-32.0); MEAN CORPUSCULAR HGB CONC 32.7 g/dL (31.0-37.0); MEAN CORPUSCULAR VOLUME 104.5 fL (80.0-94.0); MEAN PLATELET VOLUME 9.9 fl (7.4-10.4); PLATELET 62 x1000/uL (130-400); RED CELL DISTRIBUTION WIDTH 14.2 % (11.6-14.6); WHITE BLOOD COUNT 2.8 x1000/uL (4.5-11.0)
[2023-07-15 04:53] LABS: CALCIUM 7.9 mg/dL (8.7-10.4); CARBON DIOXIDE 30 mEq/L (21-32); CHLORIDE 107 mEq/L (98-107); CREATININE 0.8 mg/dL (0.6-1.3); GLUCOSE 125 mg/dL (70-105); PHOSPHORUS 3.2 mg/dL (2.5-4.9); POTASSIUM 4.5 mEq/L (3.5-5.1); SODIUM 140 mEq/L (136-145); UREA NITROGEN BLOOD 18 mg/dL (9-23)
[2023-07-15 05:21] LABS: DIFFERENTIAL COMMENT 1
[2023-07-15 09:08] LABS: BG BASE EXCESS 1.2 mmol/L (-2.0-2.0); BG CARBOXYHEMOGLOBIN 0.3 % (0.5-1.5); BG DEOXYHEMOGLOBIN 2.8 % (0.0-5.0); BG FRACTION INSPIRED OXYGEN 45; BG HCO3 ACT 26.5 mmol/L (22.0-26.0); BG METHEMOGLOBIN 0.2 % (0.0-1.5); BG OXYGEN SATURATION 97.2 % (92.0-98.5); BG OXYHEMOGLOBIN 96.7 % (94.0-97.0); BG PCO2 45.5 mmHg (35.0-45.0); BG PH 7.383 (7.350-7.450); BG PO2 100.9 mmHg (75.0-100.0); BG SAMPLE SITE RIGHT RADIAL; BG TOTAL HEMOGLOBIN 8.3 g/dL (12.0-18.0); BG VENT MODE VENT - SIMV
[2023-07-15] MEDS: PANTOPRAZOLE SODIUM 40 MG/VIAL IV SCH (09:13)
[2023-07-15] MEDS: TAMSULOSIN HCL 0.4MG SR CAPSULE PO SCH (09:14)
[2023-07-15] MEDS: ASPIRIN 81MG TABLET PO SCH (09:14)
[2023-07-15] MEDS: POTASSIUM-SODIUM PHOSPHATE POWDER PACKET PO SCH ×2 (09:14→16:55)
[2023-07-15] MEDS: TACROLIMUS 1MG/PACKET NG SCH ×2 (09:14→16:55)
[2023-07-15] MEDS: PREDNISONE 5MG TABLET PO SCH (09:15)
[2023-07-15] MEDS: ACYCLOVIR 200 MG/5 ML ORAL SYR GT SCH ×2 (09:15→21:05)
[2023-07-15 10:02] LABS: PLATELET ESTIMATE DECREASED
[2023-07-15 10:46] LABS: BG CARBOXYHEMOGLOBIN 0.3 % (0.5-1.5); BG DEOXYHEMOGLOBIN 2.4 % (0.0-5.0); BG FRACTION INSPIRED OXYGEN 45; BG HCO3 ACT 27.8 mmol/L (22.0-26.0); BG METHEMOGLOBIN 0.2 % (0.0-1.5); BG OXYGEN SATURATION 97.6 % (92.0-98.5); BG OXYHEMOGLOBIN 97.1 % (94.0-97.0); BG PH 7.372 (7.350-7.450); BG PO2 107.7 mmHg (75.0-100.0); BG SAMPLE SITE RIGHT BRACHIAL; BG TOTAL HEMOGLOBIN 10.5 g/dL (12.0-18.0); BG VENT MODE VENT - CPAP
[2023-07-15] MEDS ORDERED: RACEPINEPHRINE 2.25% 0.5ML NEB VIAL HHN PRN (12:00)
[2023-07-15 14:04] LABS: BG BASE EXCESS -1.6 mmol/L (-2.0-2.0); BG CARBOXYHEMOGLOBIN 0.3 % (0.5-1.5); BG DEOXYHEMOGLOBIN 5.2 % (0.0-5.0); BG FRACTION INSPIRED OXYGEN 40; BG HCO3 ACT 25.7 mmol/L (22.0-26.0); BG METHEMOGLOBIN 0.3 % (0.0-1.5); BG OXYGEN SATURATION 94.8 % (92.0-98.5); BG OXYHEMOGLOBIN 94.2 % (94.0-97.0); BG PCO2 56.5 mmHg (35.0-45.0); BG PH 7.276 (7.350-7.450); BG PO2 84.7 mmHg (75.0-100.0); BG SAMPLE SITE RIGHT BRACHIAL; BG TOTAL HEMOGLOBIN 10.7 g/dL (12.0-18.0); BG VENT MODE COOL AEROSOL
[2023-07-15] MEDS: MICAFUNGIN 100 MG in SODIUM CHLORIDE 0.9% 100 ML IV SCH (14:48)
[2023-07-15] MEDS: VANCOMYCIN 500MG PREMIX 100 ML IV SCH (15:31)
[2023-07-15 16:16] LABS: BG BASE EXCESS -0.9 mmol/L (-2.0-2.0); BG CARBOXYHEMOGLOBIN 0.2 % (0.5-1.5); BG DEOXYHEMOGLOBIN 3.1 % (0.0-5.0); BG FRACTION INSPIRED OXYGEN 50; BG METHEMOGLOBIN 0.5 % (0.0-1.5); BG OXYGEN SATURATION 96.9 % (92.0-98.5); BG OXYHEMOGLOBIN 96.2 % (94.0-97.0); BG PCO2 54.2 mmHg (35.0-45.0); BG PH 7.299 (7.350-7.450); BG PO2 107.6 mmHg (75.0-100.0); BG SAMPLE SITE RIGHT BRACHIAL; BG TOTAL HEMOGLOBIN 9.9 g/dL (12.0-18.0); BG VENT MODE MASK - BIPAP
[2023-07-15] MEDS: SULFAMETHOXAZOLE/TRIMETHOPRIM 200-40 MG/5ML 5ML ORAL SYR GT SCH (16:55)
[2023-07-15] MEDS ORDERED: GLYCOPYRROLATE 0.2 MG/ML 2ML VIAL IV NR (18:45)
[2023-07-16] VITALS (75 sets, daily range): BP systolic 82–169; BP diastolic 54–92; PULSE 84–120; RESP 14–32; TEMP 97–98.3
[2023-07-16] MEDS: METRONIDAZOLE 500 MG PREMIX 100 ML IV SCH ×3 (00:37→17:05)
[2023-07-16 03:00] LABS: BG BASE EXCESS -2.6 mmol/L (-2.0-2.0); BG CARBOXYHEMOGLOBIN 0.2 % (0.5-1.5); BG DEOXYHEMOGLOBIN 0.8 % (0.0-5.0); BG FRACTION INSPIRED OXYGEN 100; BG HCO3 ACT 26.9 mmol/L (22.0-26.0); BG METHEMOGLOBIN 0.5 % (0.0-1.5); BG OXYGEN SATURATION 99.2 % (92.0-98.5); BG OXYHEMOGLOBIN 98.5 % (94.0-97.0); BG PCO2 75.7 mmHg (35.0-45.0); BG PH 7.168 (7.350-7.450); BG PO2 407.2 mmHg (75.0-100.0); BG SAMPLE SITE RIGHT RADIAL; BG TOTAL HEMOGLOBIN 9.8 g/dL (12.0-18.0); BG VENT MODE VENT - AC
[2023-07-16 03:38] LABS: HEMOGLOBIN. 8.7 g/dL (14.0-18.0); MEAN CORPUSCULAR HEMOGLOBIN 35.4 pg (28.0-32.0); MEAN CORPUSCULAR HGB CONC 33.3 g/dL (31.0-37.0); MEAN CORPUSCULAR VOLUME 106.1 fL (80.0-94.0); MEAN PLATELET VOLUME 9.5 fl (7.4-10.4); PLATELET 99 x1000/uL (130-400); RED BLOOD CELL COUNT 2.45 mill/uL (4.7-6.1); RED CELL DISTRIBUTION WIDTH 14.8 % (11.6-14.6); WHITE BLOOD COUNT 3.5 x1000/uL (4.5-11.0)
[2023-07-16 03:45] LABS: CALCIUM 9.1 mg/dL (8.7-10.4); CARBON DIOXIDE 29 mEq/L (21-32); CHLORIDE 108 mEq/L (98-107); GLUCOSE 201 mg/dL (70-105); PHOSPHORUS 6.1 mg/dL (2.5-4.9); SODIUM 143 mEq/L (136-145); UREA NITROGEN BLOOD 18 mg/dL (9-23)
[2023-07-16 03:51] LABS: DIFFERENTIAL COMMENT 1
[2023-07-16 04:53] LABS: PLATELET ESTIMATE DECREASED
[2023-07-16] MEDS: VANCOMYCIN 500MG PREMIX 100 ML IV SCH (07:06)
[2023-07-16 08:48] LABS: BG BASE EXCESS 4.1 mmol/L (-2.0-2.0); BG CARBOXYHEMOGLOBIN 0.2 % (0.5-1.5); BG DEOXYHEMOGLOBIN 1.1 % (0.0-5.0); BG FRACTION INSPIRED OXYGEN 70; BG HCO3 ACT 29.4 mmol/L (22.0-26.0); BG METHEMOGLOBIN 0.3 % (0.0-1.5); BG OXYGEN SATURATION 98.9 % (92.0-98.5); BG OXYHEMOGLOBIN 98.4 % (94.0-97.0); BG PH 7.405 (7.350-7.450); BG PO2 175.3 mmHg (75.0-100.0); BG SAMPLE SITE LEFT RADIAL; BG TOTAL HEMOGLOBIN 9.1 g/dL (12.0-18.0); BG TOTAL RESPIRATORY RATE 23 b/min; BG VENT MODE VENT - AC
[2023-07-16] MEDS: PREDNISONE 5MG TABLET PO SCH (10:34)
[2023-07-16] MEDS: ASPIRIN 81MG TABLET PO SCH (10:34)
[2023-07-16] MEDS: PANTOPRAZOLE SODIUM 40 MG/VIAL IV SCH (10:34)
[2023-07-16] MEDS: POTASSIUM-SODIUM PHOSPHATE POWDER PACKET PO SCH ×2 (10:35→17:05)
[2023-07-16] MEDS: TACROLIMUS 1MG/PACKET NG SCH ×2 (10:35→17:05)
[2023-07-16] MEDS: TAMSULOSIN HCL 0.4MG SR CAPSULE PO SCH (10:35)
[2023-07-16] MEDS: ACYCLOVIR 200 MG/5 ML ORAL SYR GT SCH ×2 (10:37→20:02)
[2023-07-16] MEDS ORDERED: IPRATROPIUM/ALBUTEROL 0.5-3(2.5)MG/3ML NEB HHN PRN (11:45)
[2023-07-16] MEDS: IPRATROPIUM/ALBUTEROL 0.5-3(2.5)MG/3ML NEB HHN SCH ×2 (14:30→20:30)
[2023-07-16] MEDS: POLYVINYL ALCOHOL OPHTH DROPS 15ML BOTHEYE SCH ×2 (14:55→17:05)
[2023-07-16] MEDS: MICAFUNGIN 100 MG in SODIUM CHLORIDE 0.9% 100 ML IV SCH (14:55)
[2023-07-16] MEDS: LEVOFLOXACIN 750MG PREMIX 150 ML IV SCH (20:01)
== END 2023-07-16 22:55 | disposition short-term general hospital (02) | DRG 870 ==
LOC: ER 11:14 → MICUSO 13:54 → SUPCPDRO 14:47 → MICUSO 07-13 19:17
PROVIDERS: ADMIT Internal Medicine; ATTEND Internal Medicine
PROC: 5A1955Z Respiratory Ventilation, Greater than 96 Consecutive Hours (ICD-10-PCS; principal; 2023-07-07)
PROC: 0BH17EZ Insertion of Endotracheal Airway into Trachea, Via Natural or Artificial Opening (ICD-10-PCS; 2023-07-07)
PROC: 02HV33Z Insertion of Infusion Device into Superior Vena Cava, Percutaneous Approach (ICD-10-PCS; 2023-07-07)
PROC: 02HV33Z Insertion of Infusion Device into Superior Vena Cava, Percutaneous Approach (ICD-10-PCS; 2023-07-11)
PROC: B548ZZA Ultrasonography of Superior Vena Cava, Guidance (ICD-10-PCS; 2023-07-11)
PROC: 4A00X4Z Measurement of Central Nervous Electrical Activity, External Approach (ICD-10-PCS; 2023-07-13)
PROC: 4A00X4Z Measurement of Central Nervous Electrical Activity, External Approach (ICD-10-PCS; 2023-07-14)
PROC: 5A09357 Assistance with Respiratory Ventilation, Less than 24 Consecutive Hours, Continuous Positive Airway Pressure (ICD-10-PCS; 2023-07-15)
PROC: 5A1935Z Respiratory Ventilation, Less than 24 Consecutive Hours (ICD-10-PCS; 2023-07-16)
DX: A41.89 Other specified sepsis (principal); I46.2 Cardiac arrest due to underlying cardiac condition; I49.01 Ventricular fibrillation; R65.21 Severe sepsis with septic shock; J18.9 Pneumonia, unspecified organism; G93.41 Metabolic encephalopathy; J96.01 Acute respiratory failure with hypoxia; J96.02 Acute respiratory failure with hypercapnia; Z94.2 Lung transplant status; E87.0 Hyperosmolality and hypernatremia; E87.20 Acidosis, unspecified; N17.9 Acute kidney failure, unspecified; M34.9 Systemic sclerosis, unspecified; J61 Pneumoconiosis due to asbestos and other mineral fibers; B96.89 Other specified bacterial agents as the cause of diseases classified elsewhere; D69.6 Thrombocytopenia, unspecified; D53.9 Nutritional anemia, unspecified; R79.89 Other specified abnormal findings of blood chemistry; L89.156 Pressure-induced deep tissue damage of sacral region; N40.0 Benign prostatic hyperplasia without lower urinary tract symptoms; Z79.624 Long term (current) use of inhibitors of nucleotide synthesis; Z79.899 Other long term (current) drug therapy; Z86.16 Personal history of COVID-19; Z88.0 Allergy status to penicillin; Z87.01 Personal history of pneumonia (recurrent); Z82.41 Family history of sudden cardiac death
CPT/HCPCS: 31500; 36415; 36573; 36600; 70551; 71045; 71275; 80048; 80053; 80197; 80202; 81003; 82375; 82550; 82728; 82805; 82962; 83605; 83735; 83880; 84100; 84145; 84484; 85025; 85379; 85384; 86738; 87070; 87077; 87186; 93005; 93306; 93970; 94002; 94003; 94640; 94660; 95816; 99291; A6261; C1725; C9113; J1250; J1650; J1956; J2060; J2248; J2250; J2270; J2405; J3010; J3370; J3490; J7030; J7050; J7060; J7507; J7512; Q9967